=== PATIENT | female | born 1995 | race Caucasian/White ===

== ENCOUNTER → 2018-07-01 14:34 | Outpatient (CLI) | payer OTHER, SELFPAY | DX: Z23 Encounter for immunization (principal) | CPT/HCPCS: 90471; 90686 ==

== ENCOUNTER 2019-05-09 12:12 | Emergency (ER) | payer OTHER, SELFPAY ==
[2019-05-09 12:28] VITALS: BP 113/78; PULSE 83; RESP 18; TEMP 36.4; O2SAT 99; BMI 30.9
--- NOTE | 2019-05-09 13:30 | ED.DIZZY ---
HPI - Dizziness General Chief Complaint: Dizziness Stated Complaint: Lightheadedness, headache Time Seen by Provider: 05/09/19 13:29 Source: patient Mode of arrival: ambulatory Limitations: no limitations History of Present Illness HPI Narrative: Patient is a 23-year-old female who is 7 weeks presenting with dizziness lightheadedness. She says every time she stands up she is little dizzy lightheaded today she actually passed out. She has no abdominal pain nausea or vomiting. She has started her menstrual cycle she says she is bleeding normally for that. She has not had any fever or chills. Her symptoms are definitely worse every time she stands up or sits up. She is not dizzy she has no numbness tingling or weakness. No heart palpitations. No chest pain. MD complaint: dizziness Severity: mild Exacerbating factors: movement Related Data Home Medications Medication Instructions Recorded Confirmed ibuprofen [IBU] 800 mg PO PRN PRN 05/09/19 05/09/19 Allergies Allergy/AdvReac Type Severity Reaction Status Date / Time No Known Drug Allergies Allergy Verified 05/09/19 12:34 Review of Systems Review of Systems ROS Unobtainable: All systems reviewed & are unremarkable except as noted in HPI and below Constitutional Denies chills, Denies fever(s), Denies lethargy and Denies weakness Eyes Denies change in vision, Denies eye discharge, Denies irritation and Denies loss of vision ENT Ears, Nose, Mouth, and Throat: Denies change in voice, Denies neck pain and Denies sore throat Cardiovascular Denies chest pain, Reports diaphoresis, Reports syncope, Denies pedal edema, Denies irregular heart rhythm, Denies palpitations, Denies dyspnea and Denies dyspnea on exertion Respiratory Denies cough, Denies dyspnea, Denies dyspnea on exertion and Denies wheezing Gastrointestinal Gastrointestinal: Denies abdominal pain, Denies change in bowel habits, Denies diarrhea, Denies nausea and Denies vomiting Genitourinary Denies hematuria, Denies flank pain, Denies urinary incontinence and Denies urinary urgency Musculoskeletal Denies neck pain Integumentary/Breasts Denies pruritus, Denies erythema, Denies rash and Denies wounds Neurologic Reports syncope, Denies loss of vision and Denies weakness Endocrine Denies palpitations Allergic/Immunologic Denies wheezing [facility] Medical History Patient denies significant medical history (Acute) Social History Smoking Status: Never smoker Social History Smoking Status: Never smoker Exam Initial Vital Signs Initial Vital Signs: Vital Signs Temperature 97.5 F L 05/09/19 12:28 Pulse Rate 83 05/09/19 12:28 Respiratory Rate 18 05/09/19 12:28 Blood Pressure 113/78 05/09/19 12:28 Pulse Oximetry 99 05/09/19 12:28 GENERAL: Well-appearing, well-nourished and in no acute distress. HEENT: Head atraumatic,EOMI, pupils reactive, neck is supple no meningeal sign CARDIOVASCULAR: Regular rate and rhythm without murmurs, rubs or gallops. RESPIRATORY: Breath sounds equal bilaterally, no wheezes rales or rhonchi. ABDOMEN: Soft, nontender. Normoactive bowel sounds all 4 quadrants. No guarding or rebound. EXTREMITIES: Normal range of motion, no clubbing or edema. Neurovascularly intact NEUROLOGICAL: Alert and oriented x4.Normal gait and speech. Cranial nerves II through XII grossly intact. Narcotics Detective strength equal bilaterally SKIN: Warm, dry, no laceration, no petechiae, no rashes or lesions. Course Orders Ordered: ED Orders 05/09/19 13:25 Basic Metabolic Panel Stat Complete Blood Count AUTO DIFF Stat 05/09/19 13:46 EKG-12 Lead Stat Discontinued Medications Sodium Chloride (Normal Saline 0.9%) 1,000 mls @ 1,000 mls/hr IV BOLUS ONE Stop: 05/09/19 14:39 Last Infusion: 05/09/19 15:13 Dose: 0 mls/hr Admin: 05/09/19 13:48 Dose: 1,000 mls/hr Vital Signs - 8 hr 05/09/19 12:28 05/09/19 13:52 05/09/19 15:14 Temperature 97.5 F L Pulse Rate 83 60 Pulse Rate [Orthostatic Lying] 62 Pulse Rate [Orthostatic Sitting] 68 Pulse Rate [Orthostatic Standing] 87 Respiratory Rate 18 16 Blood Pressure 113/78 107/68 Blood Pressure [Orthostatic Lying] 98/53 L Blood Pressure [Orthostatic Sitting] 102/60 Blood Pressure [Orthostatic Standing] 100/63 Pulse Oximetry 99 100 MDM - Dizziness Lab Data Attestation: I reviewed the patient's lab results. Result diagrams: 05/09/19 13:25 05/09/19 13:25 Lab Results 05/09/19 05/09/19 Range/Units 13:25 13:25 WBC 8.0 (4.5-11.0) X10^3/uL RBC 4.89 (4.0-5.2) X10^6/uL Hgb 14.2 (12.0-16.0) g/dL Hct 42.5 (36-46) % MCV 86.9 (80-100) fL MCH 29.1 (26-34) PG MCHC 33.5 (30-36) % RDW 14.0 (11.6-14.8) % Plt Count 228 (150-400) X10^3/uL Neut % (Auto) 53.5 (50-75) % Lymph % (Auto) 35.0 (25-40) % [place] % (Auto) 8.4 (3-14) % Eos % (Auto) 2.5 (2-4) % Baso % (Auto) 0.6 (0-2) % Neut # (Auto) 4300 (2860-2570) /uL Lymph # (Auto) 2800 (1527-7809) /uL [place] # (Auto) 700 (0-900) /uL Eos # (Auto) 200 (0-450) /uL Baso # (Auto) 0 (0-100) /uL Sodium 142 (137-145) mmol/L Potassium 4.1 (3.4-5.1) mmol/L Chloride 105 (98-107) mmol/L Carbon Dioxide 26 (22-32) mmol/L BUN 13 (7-17) mg/dL Creatinine 0.70 (0.52-1.04) mg/dL Estimated GFR > 60.0 (>60) mL/min BUN/Creatinine Ratio 18.6 (6-22) Glucose 85 (70-100) mg/dL Calcium 9.2 (8.4-10.2) mg/dL Point of Care Testing Test Results Negative Urine Dip Bedside Urine Glucose Negative Bedside Urine Bilirubin - Negative Bedside Urine Ketone - Negative Urine Specific [place] 1.015 Bedside Urine Occult Blood +/- Bedside Urine pH 7.0 Bedside Urine Protein - Negative Bedside Urine Urobilinogen - Negative Bedside Urine Nitrite - Negative Bedside Urine Leukocytes - Negative Esterase ECG Data Attestation: I personally reviewed and interpreted this ECG as follows: Prior ECG tracings: not available for review Interpretation: Normal sinus rhythm rate 63 P are interval [address] changes no T-wave inversions no prior to compare MDM Narrative Medical decision making narrative: The patient overall is feeling better after IV fluids. She is not anemic no sign of dehydration she has been drinking fluids. I discussed with her getting up slowly. She was able to ambulate to the restroom without any difficulty in the ED. Her urine does not show any sign of infection. All of this is overall reassuring. Patient feels ready and able to go home. Discharge Plan Departure Patient Disposition: Home Clinical Impression: Near syncope Discharge Date/Time: 05/09/19 15:14 Interventions: ED Discharge Assessment Last Done: 05/09/19 15:14 Instructions: DI for Syncope in Children (Fainting) Activity Restrictions/Additional Instructions: *You have been diagnosed with fainting *What to do: At this time her blood work and urine sample are reassuring. No sign of anemia or dehydration. Increase fluid intake. Get up slowly. *Continue to take medications as directed *Follow up with your primary care provider in 2-3 days *Return to ER if you should have recurrent episode of passing out, heart palpitations, or any new, worsening or concerning symptoms Prescriptions: No Action ibuprofen [IBU] 800 mg tablet 800 mg PO PRN PRN (Reason: Pain (Scale Score 4-6)) RF: 0
[2019-05-09 13:46] LABS: Add Manual Diff / Slide Review NO; Basophils Absolute Auto 0 /uL (0-100); Basophils Percent Auto 0.6 % (0-2); Eosinophils Absolute Auto 200 /uL (0-450); Eosinophils Percent Auto 2.5 % (2-4); Hematocrit 42.5 % (36-46); Hemoglobin 14.2 g/dL (12.0-16.0); Lymphocytes Absolute Auto 2800 /uL (1100-4500); Mean Corpuscular HGB Conc 33.5 % (30-36); Mean Corpuscular Hemoglobin 29.1 PG (26-34); Mean Corpuscular Volume 86.9 fL (80-100); Monocytes Absolute Auto 700 /uL (0-900); Monocytes Percent Auto 8.4 % (3-14); Neutrophils Absolute Auto 4300 /uL (1500-7000); Neutrophils Percent Auto 53.5 % (50-75); Platelet Count 228 X10^3/uL (150-400); Red Blood Cell Count 4.89 X10^6/uL (4.0-5.2)
[2019-05-09] MEDS: SODIUM CHLORIDE 0.9% 1,000 ML 1000 ML IV (13:48)
[2019-05-09 13:50] LABS: BUN Creatinine Ratio 18.6 (6-22); Blood Urea Nitrogen 13 mg/dL (7-17); Calcium 9.2 mg/dL (8.4-10.2); Carbon Dioxide 26 mmol/L (22-32); Chloride 105 mmol/L (98-107); Estimated Glomerular Filt Rate > 60.0 mL/min (>60); Glucose 85 mg/dL (70-100); HEMOLYSIS 18 (0-50); Potassium 4.1 mmol/L (3.4-5.1); Sodium 142 mmol/L (137-145)
[2019-05-09 13:52] VITALS: BP 100/63; BP 102/60; BP 98/53; PULSE 62; PULSE 68; PULSE 87
[2019-05-09 15:14] VITALS: BP 107/68; PULSE 60; RESP 16; O2SAT 100
== END 2019-05-09 15:14 | disposition home or self-care (01) ==
PROVIDERS: Emergency Provider Emergency Medicine
DX: R55 Syncope and collapse (principal)
CPT/HCPCS: 80048; 81003; 81025; 85025; 93005; 96360; 99283; 99284

== ENCOUNTER 2019-07-03 06:43 | Emergency (ER) | payer OTHER, SELFPAY ==
[2019-07-03] VITALS (8 sets, daily range): BP systolic 100–111; BP diastolic 42–60; PULSE 104–128; RESP 15–18; TEMP 37.4–38.6; O2SAT 97–100; BMI 30.9
--- NOTE | 2019-07-03 07:06 | ED.GENADULT ---
HPI - General Adult General Chief complaint: Urogenital-Female Stated complaint: lower back pain,painful urination,body aches Time Seen by Provider: 07/03/19 06:58 Source: patient Mode of arrival: Ambulatory Limitations: no limitations History of Present Illness HPI narrative: 23 y/o healthy with lower back pain and painful urination over the past week. nausea today. no vomiting, loose stools today no constipation, has IUD so no regular menses. No fevers. no headache, Related Data Home Medications Medication Instructions Recorded Confirmed ibuprofen [IBU] 800 mg PO PRN PRN 05/09/19 05/09/19 Previous Rx's Medication Instructions Recorded ciprofloxacin HCl 500 mg PO BID 7 Days #14 tab 07/03/19 ondansetron 4 mg PO Q6H PRN #14 tab 07/03/19 Allergies Allergy/AdvReac Type Severity Reaction Status Date / Time No Known Drug Allergies Allergy Verified 05/09/19 12:34 Review of Systems Constitutional Constitutional: Denies fever(s) Cardiovascular Cardiovascular: Denies chest pain, Denies palpitations and Denies dyspnea Respiratory Respiratory: Denies cough and Denies dyspnea Gastrointestinal Gastrointestinal: Reports abdominal pain, Denies change in stool character, Reports nausea and Denies vomiting Genitourinary Genitourinary: Reports dysuria Musculoskeletal Musculoskeletal: Reports back pain Integumentary/Breasts Skin/Breast: Reports lesions and Reports rash Neurologic Neurologic: Denies behavioral changes Psychiatric Psychiatric: Denies behavioral changes Endocrine Endocrine: Denies palpitations Hematologic/Lymphatic Hematologic/Lymphatic: Denies easy bleeding and Denies easy bruising PFSH Medical History Patient denies significant medical history (Acute) Social History Smoking Status: Never smoker Exam Initial Vital Signs Initial Vital Signs: Vital Signs Temperature 99.4 F 07/03/19 06:50 Pulse Rate 128 H 07/03/19 06:50 Respiratory Rate 18 07/03/19 06:50 Blood Pressure 111/60 07/03/19 06:50 Pulse Oximetry 100 07/03/19 06:50 Const General: cooperative, healthy appearing, comfortable, well developed and well groomed Orientation: alert, awake and oriented x3 Resp Effort & Inspection: normal respiratory effort Auscultation: clear to auscultation bilaterally Cardio Rate: tachycardic Rhythm: regular rhythm GI Inspection: non-distended Palpation: soft, No firm and No tender Back/Spine/Pelvis Back: No CVA tenderness Skin Lesions: no lesions Rashes: no rashes Neuro General: alert, awake and oriented x3 Cognition: normal cognition Speech: speech normal Gait: normal gait Extrem General: normal to inspection and capillary refill normal Psych Appearance: grossly normal and well kempt Course Orders Ordered: ED Orders 07/03/19 06:55 Test Urine Stat Urine Culture Stat Urine Microscopic Stat 07/03/19 07:10 Complete Blood Count AUTO DIFF Stat Comprehensive Metabolic Panel Stat Lactate (Lactic Acid) Stat Lipase Stat Procalcitonin Stat Discontinued Medications Acetaminophen (Tylenol) 650 mg PO NOW ONE Stop: 07/03/19 08:04 Last Admin: 07/03/19 08:13 Dose: 650 mg Documented by: DO Ciprofloxacin (Cipro) 500 mg PO NOW ONE Stop: 07/03/19 08:09 Last Admin: 07/03/19 08:14 Dose: 500 mg Documented by: DO Sodium Chloride (Normal Saline 0.9%) 1,000 mls @ 1,000 mls/hr IV BOLUS ONE Stop: 07/03/19 07:50 Last Admin: 07/03/19 07:34 Dose: 1,000 mls/hr Documented by: DO Sodium Chloride (Normal Saline 0.9%) 1,000 mls @ 1,000 mls/hr IV BOLUS ONE Stop: 07/03/19 08:01 Last Admin: 07/03/19 08:05 Dose: Not Given Documented by: DO Ketorolac Tromethamine (Toradol) 30 mg IV NOW ONE Stop: 07/03/19 06:52 Last Admin: 07/03/19 07:26 Dose: Not Given Documented by: DENYS Ketorolac Tromethamine (Toradol) 30 mg IV NOW ONE Stop: 07/03/19 07:26 Last Admin: 07/03/19 07:34 Dose: 30 mg Documented by: DO Vital Signs Vital signs: Vital Signs - 8 hr 07/03/19 06:50 07/03/19 07:15 07/03/19 08:06 Temperature 99.4 F 101.4 F H Pulse Rate 128 H 118 H 112 H Respiratory Rate 18 17 16 Blood Pressure 111/60 Blood Pressure [Left Arm] 100/46 L 102/42 L Pulse Oximetry 100 99 98 07/03/19 08:10 07/03/19 08:13 07/03/19 08:36 Temperature 101.4 F H Pulse Rate 108 H 113 H Respiratory Rate 16 15 Blood Pressure Blood Pressure [Left Arm] 102/46 L 101/54 L Pulse Oximetry 97 99 Medical Decision Making Lab Data Lab results reviewed: Yes I reviewed the patient's lab results. Result diagrams: 07/03/19 07:10 07/03/19 07:10 Labs: Lab Results 07/03/19 07/03/19 07/03/19 Range/Units 06:55 06:55 07:10 WBC 13.4 H (4.5-11.0) X10^3/uL RBC 4.35 (4.0-5.2) X10^6/uL Hgb 13.0 (12.0-16.0) g/dL Hct 38.7 (36-46) % MCV 89.1 (80-100) fL MCH 29.8 (26-34) PG MCHC 33.5 (30-36) % RDW 13.2 (11.6-14.8) % Plt Count 234 (150-400) X10^3/uL Neut % (Auto) 82.9 H (50-75) % Lymph % (Auto) 8.0 L (25-40) % [place] % (Auto) 8.4 (3-14) % Eos % (Auto) 0.5 L (2-4) % Baso % (Auto) 0.2 (0-2) % Neut # (Auto) 49626 H (8677-7131) /uL Lymph # (Auto) 1100 (6677-0121) /uL [place] # (Auto) 1100 H (0-900) /uL Eos # (Auto) 100 (0-450) /uL Baso # (Auto) 0 (0-100) /uL Sodium (137-145) mmol/L Potassium (3.4-5.1) mmol/L Chloride (98-107) mmol/L Carbon Dioxide (22-32) mmol/L BUN (7-17) mg/dL Creatinine (0.52-1.04) mg/dL Estimated GFR (>60) mL/min BUN/Creatinine Ratio (6-22) Glucose (70-100) mg/dL Lactate (0.7-2.1) mmol/L Calcium (8.4-10.2) mg/dL Total Bilirubin (0.2-1.3) mg/dL AST (14-36) IU/L ALT (9-52) IU/L Alkaline Phosphatase (38-126) U/L Total Protein (6.3-8.2) g/dL Albumin (3.5-5.0) g/dL Globulin (1.7-4.1) g/dL Albumin/Globulin Ratio (1.0-2.8) Lipase (23-300) U/L Procalcitonin (<0.5) ng/mL Urine RBC 5-10/hpf H (0-5/HPF) Urine WBC >100/hpf H (0-5/HPF) Urine Bacteria Many (>30) H (None) Ur Culture Indicated? Specimen cultured Urine Test Negative (Negative) 07/03/19 07/03/19 07/03/19 Range/Units 07:10 07:10 07:10 WBC (4.5-11.0) X10^3/uL RBC (4.0-5.2) X10^6/uL Hgb (12.0-16.0) g/dL Hct (36-46) % MCV (80-100) fL MCH (26-34) PG MCHC (30-36) % RDW (11.6-14.8) % Plt Count (150-400) X10^3/uL Neut % (Auto) (50-75) % Lymph % (Auto) (25-40) % [place] % (Auto) (3-14) % Eos % (Auto) (2-4) % Baso % (Auto) (0-2) % Neut # (Auto) (3843-4224) /uL Lymph # (Auto) (0945-0160) /uL [place] # (Auto) (0-900) /uL Eos # (Auto) (0-450) /uL Baso # (Auto) (0-100) /uL Sodium 139 (137-145) mmol/L Potassium 3.9 (3.4-5.1) mmol/L Chloride 105 (98-107) mmol/L Carbon Dioxide 22 (22-32) mmol/L BUN 11 (7-17) mg/dL Creatinine 0.70 (0.52-1.04) mg/dL Estimated GFR > 60.0 (>60) mL/min BUN/Creatinine Ratio 15.7 (6-22) Glucose 163 H (70-100) mg/dL Lactate (0.7-2.1) mmol/L Calcium 9.2 (8.4-10.2) mg/dL Total Bilirubin 0.6 (0.2-1.3) mg/dL AST 45 H (14-36) IU/L ALT 26 (9-52) IU/L Alkaline Phosphatase 91 (38-126) U/L Total Protein 7.6 (6.3-8.2) g/dL Albumin 4.3 (3.5-5.0) g/dL Globulin 3.3 (1.7-4.1) g/dL Albumin/Globulin Ratio 1.3 (1.0-2.8) Lipase 32 (23-300) U/L Procalcitonin < 0.05 (<0.5) ng/mL Urine RBC (0-5/HPF) Urine WBC (0-5/HPF) Urine Bacteria (None) Ur Culture Indicated? Urine Test (Negative) 07/03/19 Range/Units 07:10 WBC (4.5-11.0) X10^3/uL RBC (4.0-5.2) X10^6/uL Hgb (12.0-16.0) g/dL Hct (36-46) % MCV (80-100) fL MCH (26-34) PG MCHC (30-36) % RDW (11.6-14.8) % Plt Count (150-400) X10^3/uL Neut % (Auto) (50-75) % Lymph % (Auto) (25-40) % [place] % (Auto) (3-14) % Eos % (Auto) (2-4) % Baso % (Auto) (0-2) % Neut # (Auto) (0937-2280) /uL Lymph # (Auto) (8335-5612) /uL [place] # (Auto) (0-900) /uL Eos # (Auto) (0-450) /uL Baso # (Auto) (0-100) /uL Sodium (137-145) mmol/L Potassium (3.4-5.1) mmol/L Chloride (98-107) mmol/L Carbon Dioxide (22-32) mmol/L BUN (7-17) mg/dL Creatinine (0.52-1.04) mg/dL Estimated GFR (>60) mL/min BUN/Creatinine Ratio (6-22) Glucose (70-100) mg/dL Lactate 2.0 (0.7-2.1) mmol/L Calcium (8.4-10.2) mg/dL Total Bilirubin (0.2-1.3) mg/dL AST (14-36) IU/L ALT (9-52) IU/L Alkaline Phosphatase (38-126) U/L Total Protein (6.3-8.2) g/dL Albumin (3.5-5.0) g/dL Globulin (1.7-4.1) g/dL Albumin/Globulin Ratio (1.0-2.8) Lipase (23-300) U/L Procalcitonin (<0.5) ng/mL Urine RBC (0-5/HPF) Urine WBC (0-5/HPF) Urine Bacteria (None) Ur Culture Indicated? Urine Test (Negative) Urine Dip Bedside Urine Glucose Negative Bedside Urine Bilirubin - Negative Bedside Urine Ketone ++ 40 Urine Specific [place] 1.015 Bedside Urine Occult Blood ++ Bedside Urine pH 6.0 Bedside Urine Protein ++ 100 Bedside Urine Urobilinogen - Negative Bedside Urine Nitrite - Negative Bedside Urine Leukocytes +++ 500 Esterase Point of care testing: Urine Dip Bedside Urine Glucose Negative Bedside Urine Bilirubin - Negative Bedside Urine Ketone ++ 40 Urine Specific [place] 1.015 Bedside Urine Occult Blood ++ Bedside Urine pH 6.0 Bedside Urine Protein ++ 100 Bedside Urine Urobilinogen - Negative Bedside Urine Nitrite - Negative Bedside Urine Leukocytes +++ 500 Esterase MDM Narrative Medical decision making narrative: Patient looks well, has a elevated white count, urinalysis is consistent with UTI however lactate and procalcitonin reassuring. She does have some lower back pain. Given her fever and tachycardia will treat her for pyelonephritis however not 100% convinced that is what is going on. She did tolerate the oral antibiotic here in the ER. She was given return precautions and follow-up instructions. She expressed understanding and agreement with plan. Discharge Plan Departure Patient Disposition: Home Clinical Impression: Urinary tract infection Qualifiers: Urinary tract infection type: acute cystitis Hematuria presence: with hematuria Qualified Code(s): N30.01 - Acute cystitis with hematuria Instructions: DI for Urinary Tract Infection (UTI) Activity Restrictions/Additional Instructions: Take all the medications as directed. Increase your fluid intake. Return to the emergency department for any new or worsening symptoms Prescriptions: New ondansetron 4 mg tablet,disintegrating 4 mg PO Q6H PRN (Reason: nausea and vomiting) Qty: 14 RF: 0 ciprofloxacin HCl 500 mg tablet 500 mg PO BID 7 Days Qty: 14 RF: 0 No Action ibuprofen [IBU] 800 mg tablet 800 mg PO PRN PRN (Reason: Pain (Scale Score 4-6)) RF: 0
[2019-07-03 07:30] LABS: Lipase 32 U/L (23-300)
[2019-07-03] MEDS: SODIUM CHLORIDE 0.9% 1,000 ML 1000 ML IV (07:34)
[2019-07-03] MEDS: KETOROLAC 60 MG/2 ML VIAL 30 MG IV (07:34)
[2019-07-03 07:35] LABS: Add Manual Diff / Slide Review NO; Basophils Absolute Auto 0 /uL (0-100); Basophils Percent Auto 0.2 % (0-2); Eosinophils Absolute Auto 100 /uL (0-450); Eosinophils Percent Auto 0.5 % (2-4); Hematocrit 38.7 % (36-46); Lymphocytes Absolute Auto 1100 /uL (1100-4500); Mean Corpuscular HGB Conc 33.5 % (30-36); Mean Corpuscular Hemoglobin 29.8 PG (26-34); Mean Corpuscular Volume 89.1 fL (80-100); Monocytes Absolute Auto 1100 /uL (0-900); Monocytes Percent Auto 8.4 % (3-14); Neutrophils Absolute Auto 11100 /uL (1500-7000); Neutrophils Percent Auto 82.9 % (50-75); Platelet Count 234 X10^3/uL (150-400); Red Blood Cell Count 4.35 X10^6/uL (4.0-5.2); Red Cell Distribution Width 13.2 % (11.6-14.8); White Blood Cell Count 13.4 X10^3/uL (4.5-11.0)
[2019-07-03 07:51] LABS: Bacteria Urine Many (>30); Culture Indicated Urine Specimen Cultured; Pregnancy Test Urine Negative (Negative); RBC Urine 5-10/HPF (0-5/HPF); WBC Urine >100/HPF (0-5/HPF)
[2019-07-03 07:59] LABS: Procalcitonin < 0.05 ng/mL (<0.5)
[2019-07-03] MEDS: ACETAMINOPHEN 325 MG TABLET 650 MG PO (08:13)
[2019-07-03] MEDS: CIPROFLOXACIN 500 MG TABLET PO (08:14)
[2019-07-03 08:40] LABS: Alanine Aminotransferase 26 IU/L (9-52); Albumin 4.3 g/dL (3.5-5.0); Albumin Globulin Ratio 1.3 (1.0-2.8); Alkaline Phosphatase 91 U/L (38-126); Aspartate Aminotransferase 45 IU/L (14-36); BUN Creatinine Ratio 15.7 (6-22); Bilirubin Total 0.6 mg/dL (0.2-1.3); Blood Urea Nitrogen 11 mg/dL (7-17); Calcium 9.2 mg/dL (8.4-10.2); Carbon Dioxide 22 mmol/L (22-32); Chloride 105 mmol/L (98-107); Estimated Glomerular Filt Rate > 60.0 mL/min (>60); Globulin 3.3 g/dL (1.7-4.1); Glucose 163 mg/dL (70-100); HEMOLYSIS < 15 (0-50); Potassium 3.9 mmol/L (3.4-5.1); Sodium 139 mmol/L (137-145); Total Protein 7.6 g/dL (6.3-8.2)
== END 2019-07-03 09:08 | disposition home or self-care (01) ==
PROVIDERS: Emergency Medicine; Emergency Provider Emergency Medicine
DX: N30.01 Acute cystitis with hematuria (principal); D72.829 Elevated white blood cell count, unspecified
CPT/HCPCS: 36415; 80053; 81003; 81015; 81025; 83605; 83690; 84145; 85025; 87077; 87086; 87186; 96361; 96374; 99283; 99284; J1885

== ENCOUNTER 2019-12-30 08:08 | Emergency (ER) | payer OTHER, SELFPAY ==
[2019-12-30 08:10] VITALS: BP 134/63; PULSE 126; RESP 18; TEMP 36.9; O2SAT 96; BMI 35.4
--- NOTE | 2019-12-30 08:28 | PC.NURSE ---
pt had travel in the cruise to [place] a month ago.
--- NOTE | 2019-12-30 08:30 | ED.NAVMDI ---
HPI - Nausea/Vomiting/Diarrhea General Chief complaint: Nausea/Vomiting/Diarrhea Stated complaint: fever,diarrhea,vomiting Time Seen by Provider: 12/30/19 08:14 Source: patient Mode of arrival: Ambulatory Limitations: no limitations History of Present Illness HPI Narrative: 24-year-old female here for evaluation of 3 days of multiple episodes of nausea vomiting and diarrhea. Patient states that all her symptoms started 3 days ago with a fever. She has been taking ibuprofen. No cough for congestion or sore throat or chest pain. Proximal 24 hours after the fever started having diarrhea and vomiting. Her last urination was greater than 24 hours ago. Has not tried anything for symptoms prior to arrival. Has generalized abdominal pain associated with the diarrhea. Had travel outside of the country 1 month ago. Has had her gallbladder removed and her tubes tied. No blood in the stool or vomit. Related Data Home Medications Medication Instructions Recorded Confirmed ibuprofen [IBU] 800 mg PO PRN PRN 05/09/19 05/09/19 Previous Rx's Medication Instructions Recorded ondansetron 4 mg PO Q6H PRN #14 tab 07/03/19 ondansetron 4 mg PO Q6H PRN #14 tab 12/30/19 Allergies Allergy/AdvReac Type Severity Reaction Status Date / Time No Known Drug Allergies Allergy Verified 12/30/19 08:18 Review of Systems Constitutional Constitutional: Reports fever(s) ENT Ears, Nose, Mouth, and Throat: Denies vertigo, Denies sinus pressure and Denies sore throat Cardiovascular Cardiovascular: Denies chest pain, Denies palpitations and Denies dyspnea Respiratory Respiratory: Denies cough and Denies dyspnea Gastrointestinal Gastrointestinal: Reports abdominal pain, Reports cramping, Reports diarrhea, Reports nausea and Reports vomiting Genitourinary Genitourinary: Denies dysuria Musculoskeletal Musculoskeletal: Denies myalgias and Denies arthralgias Integumentary/Breasts Skin/Breast: Denies lesions and Denies rash Neurologic Neurologic: Denies behavioral changes and Denies vertigo Psychiatric Psychiatric: Denies behavioral changes Endocrine Endocrine: Denies palpitations Hematologic/Lymphatic Hematologic/Lymphatic: Denies easy bleeding and Denies easy bruising Patient History Medical History Patient denies significant medical history (Acute) Surgical History History of cholecystectomy (Acute) History of tubal ligation (Acute) Social History Smoking Status: Never smoker Smoking Status: Never smoker alcohol intake frequency: holidays/special occasions only Alcohol type: wine Substance Use Type: does not use Exam Initial Vital Signs Initial Vital Signs: Vital Signs Temperature 98.5 F 12/30/19 08:10 Pulse Rate 126 H 12/30/19 08:10 Respiratory Rate 18 12/30/19 08:10 Blood Pressure 134/63 12/30/19 08:10 Pulse Oximetry 96 12/30/19 08:10 Const General: cooperative, comfortable, well developed and well groomed Limitations: mental status not altered HENMT Head: normal to inspection Resp Effort & Inspection: normal respiratory effort Auscultation: clear to auscultation bilaterally Cardio Rate: tachycardic Rhythm: regular rhythm Pulses: radial pulses present GI Inspection: non-distended Palpation: soft, No firm and No tender Skin Lesions: no lesions Rashes: no rashes Neuro General: alert, awake and oriented x3 Cognition: normal cognition Speech: speech normal Gait: normal gait Extrem General: normal to inspection and capillary refill normal Psych Appearance: grossly normal and well kempt Scores GCS Gio coma scale eye opening: Spontaneous [place] coma scale verbal response: Orientated [place] coma scale motor response: Obey commands [place] coma scale total score: 15 Course Orders Ordered: ED Orders 12/30/19 08:22 EKG-12 Lead Stat 12/30/19 08:25 Complete Blood Count AUTO DIFF Stat Comprehensive Metabolic Panel Stat Lipase Stat Discontinued Medications Sodium Chloride (Normal Saline 0.9%) 1,000 mls @ 1,000 mls/hr IV BOLUS ONE Stop: 12/30/19 09:21 Last Infusion: 12/30/19 09:34 Dose: 0 mls/hr Documented by: Admin: 12/30/19 08:34 Dose: 1,000 mls/hr Documented by: MEISENB Sodium Chloride (Normal Saline 0.9%) 1,000 mls @ 1,000 mls/hr IV BOLUS ONE Stop: 12/30/19 10:20 Last Infusion: 12/30/19 10:54 Dose: 0 mls/hr Documented by: Admin: 12/30/19 09:38 Dose: 1,000 mls/hr Documented by: HERMELINDA Ketorolac Tromethamine (Toradol) 30 mg IV NOW ONE Stop: 12/30/19 09:22 Last Admin: 12/30/19 09:39 Dose: 30 mg Documented by: HERMELINDA Ondansetron HCl (Zofran) 4 mg IV NOW ONE Stop: 12/30/19 08:30 Last Admin: 12/30/19 08:34 Dose: 4 mg Documented by: CASEY Vital Signs Vital signs: Vital Signs - 8 hr 12/30/19 08:10 12/30/19 10:02 12/30/19 11:06 Temperature 98.5 F Pulse Rate 126 H 104 H 98 H Respiratory Rate 18 16 16 Blood Pressure 134/63 Blood Pressure [Right Arm] 118/58 L 133/56 L Pulse Oximetry 96 99 98 MDM - Nausea/Vomiting/Diarrhea Lab Data Attestation: I reviewed the patient's lab results. Result diagrams: 12/30/19 08:25 12/30/19 08:25 Labs: Lab Results 12/30/19 12/30/19 Range/Units 08:25 08:25 WBC 8.8 (4.5-11.0) X10^3/uL RBC 5.31 H (4.0-5.2) X10^6/uL Hgb 16.2 H (12.0-16.0) g/dL Hct 47.1 H (36-46) % MCV 88.6 (80-100) fL MCH 30.6 (26-34) PG MCHC 34.5 (30-36) % RDW 12.6 (11.6-14.8) % Plt Count 223 (150-400) X10^3/uL Neut % (Auto) 71.7 (50-75) % Lymph % (Auto) 17.1 L (25-40) % Sampson % (Auto) 10.1 (3-14) % Eos % (Auto) 0.7 L (2-4) % Baso % (Auto) 0.4 (0-2) % Neut # (Auto) 6300 (0823-1094) /uL Lymph # (Auto) 1500 (4294-5862) /uL Sampson # (Auto) 900 (0-900) /uL Eos # (Auto) 100 (0-450) /uL Baso # (Auto) 0 (0-100) /uL Sodium 138 (137-145) mmol/L Potassium 4.0 (3.4-5.1) mmol/L Chloride 104 (98-107) mmol/L Carbon Dioxide 24 (22-32) mmol/L BUN 13 (7-17) mg/dL Creatinine 0.78 (0.52-1.04) mg/dL Estimated GFR > 60.0 (>60) mL/min BUN/Creatinine Ratio 16.7 (6-22) Glucose 109 H (70-100) mg/dL Calcium 9.5 (8.4-10.2) mg/dL Total Bilirubin 0.8 (0.2-1.3) mg/dL AST 35 (14-36) IU/L ALT 32 (<35) IU/L Alkaline Phosphatase 110 (38-126) U/L Total Protein 8.6 H (6.3-8.2) g/dL Albumin 4.7 (3.5-5.0) g/dL Globulin 3.9 (1.7-4.1) g/dL Albumin/Globulin Ratio 1.2 (1.0-2.8) Lipase 48 (23-300) U/L ECG Data Attestation: I personally reviewed and interpreted this ECG as follows: Prior ECG tracings: not available for review Interpretation: Sinus tachycardia Ventricular rate of 108 Normal axis Normal QRS Normal QTC No ST T wave changes MDM Narrative Medical decision making narrative: Feel somewhat better after the fluids and the nausea medication. She states that she does feel somewhat nauseous however was able to tolerate oral intake. Was able to urinate a small amount. Feel that we could hold on radiologic studies. No indication for antibiotics. Will send home with nausea medication. Patient has benign abdominal exam. She was given return precautions and follow-up instructions. She expressed understanding and agreement. Discharge Plan Departure Patient Disposition: Home Clinical Impression: Nausea, Vomiting, and Diarrhea Instructions: Diarrhea, DI for Dehydration -- Adult, DI for Nausea -- Adult, DI for Vomiting -- Adult Activity Restrictions/Additional Instructions: Be sure to increase your fluid intake by taking small amounts of fluid over longer periods of time. Use the nausea medication as needed. Contact your primary provider for follow-up. Return to the emergency department for any new or worsening symptoms. Your prescriptions were electronically transmitted to [facility]. Prescriptions: New ondansetron 4 mg tablet,disintegrating 4 mg PO Q6H PRN (Reason: nausea and vomiting) Qty: 14 RF: 0 No Action ibuprofen [IBU] 800 mg tablet 800 mg PO PRN PRN (Reason: Pain (Scale Score 4-6)) RF: 0 ondansetron 4 mg tablet,disintegrating 4 mg PO Q6H PRN (Reason: nausea and vomiting) Qty: 14 RF: 0 Referrals: Miscellaneous,Doctor, MD [Primary Care Provider] -
[2019-12-30] MEDS: SODIUM CHLORIDE 0.9% 1,000 ML 1000 ML IV ×2 (08:34→09:38)
[2019-12-30] MEDS: ONDANSETRON 4 MG/2 ML INJ IV (08:34)
[2019-12-30 08:37] LABS: Add Manual Diff / Slide Review NO; Basophils Absolute Auto 0 /uL (0-100); Basophils Percent Auto 0.4 % (0-2); Eosinophils Absolute Auto 100 /uL (0-450); Eosinophils Percent Auto 0.7 % (2-4); Hematocrit 47.1 % (36-46); Hemoglobin 16.2 g/dL (12.0-16.0); Lymphocytes Absolute Auto 1500 /uL (1100-4500); Lymphocytes Percent Auto 17.1 % (25-40); Mean Corpuscular HGB Conc 34.5 % (30-36); Mean Corpuscular Hemoglobin 30.6 PG (26-34); Mean Corpuscular Volume 88.6 fL (80-100); Monocytes Absolute Auto 900 /uL (0-900); Monocytes Percent Auto 10.1 % (3-14); Neutrophils Absolute Auto 6300 /uL (1500-7000); Neutrophils Percent Auto 71.7 % (50-75); Platelet Count 223 X10^3/uL (150-400); Red Blood Cell Count 5.31 X10^6/uL (4.0-5.2); Red Cell Distribution Width 12.6 % (11.6-14.8); White Blood Cell Count 8.8 X10^3/uL (4.5-11.0)
[2019-12-30 08:43] LABS: Alanine Aminotransferase 32 IU/L (<35); Albumin 4.7 g/dL (3.5-5.0); Albumin Globulin Ratio 1.2 (1.0-2.8); Alkaline Phosphatase 110 U/L (38-126); Aspartate Aminotransferase 35 IU/L (14-36); BUN Creatinine Ratio 16.7 (6-22); Bilirubin Total 0.8 mg/dL (0.2-1.3); Blood Urea Nitrogen 13 mg/dL (7-17); Calcium 9.5 mg/dL (8.4-10.2); Carbon Dioxide 24 mmol/L (22-32); Chloride 104 mmol/L (98-107); Estimated Glomerular Filt Rate > 60.0 mL/min (>60); Globulin 3.9 g/dL (1.7-4.1); Glucose 109 mg/dL (70-100); HEMOLYSIS < 15 (0-50); Lipase 48 U/L (23-300); Sodium 138 mmol/L (137-145); Total Protein 8.6 g/dL (6.3-8.2)
[2019-12-30] MEDS: KETOROLAC 60 MG/2 ML VIAL 30 MG IV (09:39)
[2019-12-30 10:02] VITALS: BP 118/58; PULSE 104; RESP 16; O2SAT 99
--- NOTE | 2019-12-30 10:56 | PC.NURSE ---
to void, but will try to void, ambulate to bathroom with steady gait. nad.
[2019-12-30 11:06] VITALS: BP 133/56; PULSE 98; RESP 16; O2SAT 98
== END 2019-12-30 11:39 | disposition home or self-care (01) ==
PROVIDERS: Emergency Provider Emergency Medicine
DX: R50.9 Fever, unspecified (principal); R19.7 Diarrhea, unspecified; R10.9 Unspecified abdominal pain
CPT/HCPCS: 36415; 80053; 83690; 85025; 93005; 96361; 96374; 96375; 99284; J1885; J2405

== ENCOUNTER 2020-05-17 20:53 | Emergency (ER) | payer OTHER, SELFPAY ==
[2020-05-17 21:02] VITALS: BP 116/77; PULSE 80; RESP 18; TEMP 36.3; O2SAT 99; BMI 35.4
[2020-05-17 21:27] LABS: Add Manual Diff / Slide Review NO; Basophils Absolute Auto 0 /uL (0-100); Basophils Percent Auto 0.5 % (0-2); Eosinophils Absolute Auto 300 /uL (0-450); Eosinophils Percent Auto 3.1 % (2-4); Hematocrit 38.1 % (36-46); Hemoglobin 13.2 g/dL (12.0-16.0); Lymphocytes Absolute Auto 3100 /uL (1100-4500); Lymphocytes Percent Auto 35.8 % (25-40); Mean Corpuscular HGB Conc 34.7 % (30-36); Mean Corpuscular Hemoglobin 29.9 PG (26-34); Mean Corpuscular Volume 86.1 fL (80-100); Monocytes Absolute Auto 1100 /uL (0-900); Monocytes Percent Auto 12.7 % (3-14); Neutrophils Absolute Auto 4100 /uL (1500-7000); Neutrophils Percent Auto 47.9 % (50-75); Platelet Count 204 X10^3/uL (150-400); Red Blood Cell Count 4.43 X10^6/uL (4.0-5.2); Red Cell Distribution Width 12.8 % (11.6-14.8); White Blood Cell Count 8.6 X10^3/uL (4.5-11.0)
[2020-05-17 21:35] LABS: INR 1.1 (0.9-1.3); Prothrombin Time 13.2 SECONDS (10.1-12.7)
[2020-05-17 21:38] LABS: PTT Partial Thromboplastin Tim 31 SECONDS (26.4-36.2)
[2020-05-17 21:39] LABS: Alanine Aminotransferase 33 IU/L (<35); Albumin 4.2 g/dL (3.5-5.0); Albumin Globulin Ratio 1.3 (1.0-2.8); Alkaline Phosphatase 94 U/L (38-126); Aspartate Aminotransferase 31 IU/L (14-36); BUN Creatinine Ratio 15.1 (6-22); Bilirubin Total 0.6 mg/dL (0.2-1.3); Blood Urea Nitrogen 11 mg/dL (7-17); Calcium 9.5 mg/dL (8.4-10.2); Carbon Dioxide 24 mmol/L (22-32); Chloride 105 mmol/L (98-107); Estimated Glomerular Filt Rate > 60.0 mL/min (>60); Globulin 3.3 g/dL (1.7-4.1); Glucose 102 mg/dL (70-100); HEMOLYSIS < 15 (0-50); Lipase 59 U/L (23-300); Potassium 3.5 mmol/L (3.4-5.1); Sodium 139 mmol/L (137-145); Total Protein 7.5 g/dL (6.3-8.2)
--- NOTE | 2020-05-17 21:49 | ED_ITS ---
HPI - GI Bleed General Chief complaint: GI Bleed Stated complaint: stomach pain, rectal bleed Time Seen by Provider: 05/17/20 21:00 Source: patient Mode of arrival: Ambulatory Limitations: no limitations History of Present Illness HPI Narrative: Female nonsmoker presents with a significant other and a chief complaint abdominal cramping and bloating with frequent episodes of diarrhea which have been bloody and foul-smelling the past few days. She has had fever as high as 102. She is not dizzy nor weak or lightheaded. She has had nausea but no vomiting. She denies any recent antibiotics, international travel or exposure to bad food. She denies any exposure to ill persons. She is otherwise well and free of complaint MD complaint: blood streaked stool Onset (ago): day(s) Pain Consistency: intermittent Severity: moderate Relieving factors: none Exacerbating factors: bowel movement Treatments Prior to Arrival: none Related Data Home Medications Medication Instructions Recorded Confirmed ibuprofen [IBU] 800 mg PO PRN PRN 05/09/19 05/09/19 Previous Rx's Medication Instructions Recorded ondansetron 4 mg PO Q6H PRN #14 tab 07/03/19 ondansetron 4 mg PO Q6H PRN #14 tab 12/30/19 azithromycin 500 mg PO DAILY 3 Days tab 05/17/20 Allergies Allergy/AdvReac Type Severity Reaction Status Date / Time No Known Drug Allergies Allergy Verified 12/30/19 08:18 Review of Systems Constitutional Constitutional: Denies chills, Denies fatigue, Denies fever(s), Denies frequent falls, Denies lethargy and Denies weakness Eyes Eyes: Denies change in vision, Denies eye discharge, Denies irritation and Denies loss of vision ENT Ears, Nose, Mouth, and Throat: Denies change in voice, Denies dizziness, Denies neck pain, Denies sore throat and Denies throat swelling Cardiovascular Cardiovascular: Denies chest pain, Denies irregular heart rhythm, Denies lightheadedness, Denies palpitations, Denies dyspnea, Denies dyspnea on exertion and Denies orthopnea Respiratory Respiratory: Denies cough, Denies dyspnea, Denies dyspnea on exertion and Denies wheezing Gastrointestinal Gastrointestinal: Reports abdominal pain, Reports hematochezia, Denies change in bowel habits, Reports change in stool character, Reports diarrhea, Reports nausea and Denies vomiting Musculoskeletal Musculoskeletal: Denies neck pain and Denies numbness Integumentary/Breasts Skin/Breast: Denies pruritus, Denies erythema, Denies rash and Denies wounds Neurologic Neurologic: Denies behavioral changes, Denies confusion, Denies dizziness, Denies frequent falls, Denies loss of vision, Denies numbness and Denies weakness Psychiatric Psychiatric: Denies anxiety, Denies behavioral changes, Denies confusion, Denies depression, Denies homicidal ideation and Denies suicidal ideation Endocrine Endocrine: Denies fatigue, Denies flushing and Denies palpitations Hematologic/Lymphatic Hematologic/Lymphatic: Denies easy bruising Allergic/Immunologic Allergic/Immunologic: Denies urticaria, Denies throat swelling and Denies wheezing Patient History Medical History Patient denies significant medical history (Acute) Surgical History History of cholecystectomy (Acute) History of tubal ligation (Acute) Social History Smoking Status: Never smoker Smoking Status: Never smoker alcohol intake frequency: holidays/special occasions only Alcohol type: wine Substance Use Type: does not use Exam Narrative Exam Narrative: GENERAL: [24] year old patient appears stated age. Well- nourished, well-developed patient, in mild distress. HEAD: Atraumatic. Normocephalic. EYES: Pupils equal round and reactive. Extraocular motions intact. No scleral ic terus. No injection or drainage. ENT: Nose without bleeding, purulent drainage. Throat without erythema, tonsillar hypertrophy or exudate. Airway patent. NECK: Trachea midline. Non tender CARDIOVASCULAR: Regular rate and rhythm without murmurs, gallops, or rubs. RESPIRATORY: Clear to auscultation. Breath sounds equal bilaterally. No wheezes, rales, or rhonchi. GASTROINTESTINAL: Abdomen soft, generalized tenderness with increased bowel sounds nondistended. EXTREMITIES: No edema or joint tenderness. BACK: Nontender without deformity or crepitance. No flank tenderness. NEURO: AOx3. SKIN: No rash or erythema of visible areas Initial Vital Signs Initial Vital Signs: Vital Signs Temperature 97.4 F L 05/17/20 21:02 Pulse Rate 80 05/17/20 21:02 Respiratory Rate 18 05/17/20 21:02 Blood Pressure 116/77 05/17/20 21:02 Pulse Oximetry 99 05/17/20 21:02 Course Orders Ordered: ED Orders 05/17/20 21:15 Complete Blood Count AUTO DIFF Stat Comprehensive Metabolic Panel Stat Lipase Stat Partial Thromboplastin Time Stat Prothrombin Time INR Stat 05/17/20 21:45 GI Panel (Film Array) Stat 05/17/20 23:23 Urine Microscopic Stat Discontinued Medications Azithromycin (Zithromax) 500 mg PO NOW ONE Stop: 05/17/20 23:40 Last Admin: 05/17/20 23:43 Dose: 500 mg Documented by: ECHO Sodium Chloride (Normal Saline 0.9%) 1,000 mls @ 1,000 mls/hr IV BOLUS ONE Stop: 05/17/20 22:41 Last Infusion: 05/17/20 23:37 Dose: 0 mls/hr Documented by: Admin: 05/17/20 21:51 Dose: 1,000 mls/hr Documented by: RUCHI Sodium Chloride (Normal Saline 0.9%) 1,000 mls @ 1,000 mls/hr IV BOLUS ONE Stop: 05/18/20 00:08 Last Infusion: 05/18/20 00:20 Dose: 0 mls/hr Documented by: Admin: 05/17/20 23:30 Dose: 1,000 mls/hr Documented by: RUCHI Vital Signs Vital signs: Vital Signs - 8 hr 05/17/20 23:56 Pulse Rate 78 Respiratory Rate 15 Blood Pressure 108/72 Pulse Oximetry 98 MDM - GI Bleed Lab Data Result diagrams: 05/17/20 21:15 05/17/20 21:15 Labs: Lab Results 05/17/20 05/17/20 05/17/20 Range/Units 21:15 21:15 21:15 WBC 8.6 (4.5-11.0) X10^3/uL RBC 4.43 (4.0-5.2) X10^6/uL Hgb 13.2 (12.0-16.0) g/dL Hct 38.1 (36-46) % MCV 86.1 (80-100) fL MCH 29.9 (26-34) PG MCHC 34.7 (30-36) % RDW 12.8 (11.6-14.8) % Plt Count 204 (150-400) X10^3/uL Neut % (Auto) 47.9 L (50-75) % Lymph % (Auto) 35.8 (25-40) % [place] % (Auto) 12.7 (3-14) % Eos % (Auto) 3.1 (2-4) % Baso % (Auto) 0.5 (0-2) % Neut # (Auto) 4100 (3351-9052) /uL Lymph # (Auto) 3100 (7441-8481) /uL [place] # (Auto) 1100 H (0-900) /uL Eos # (Auto) 300 (0-450) /uL Baso # (Auto) 0 (0-100) /uL PT 13.2 H (10.1-12.7) SECONDS INR 1.1 (0.9-1.3) APTT 31 (26.4-36.2) SECONDS Sodium 139 (137-145) mmol/L Potassium 3.5 (3.4-5.1) mmol/L Chloride 105 (98-107) mmol/L Carbon Dioxide 24 (22-32) mmol/L BUN 11 (7-17) mg/dL Creatinine 0.73 (0.52-1.04) mg/dL Estimated GFR > 60.0 (>60) mL/min BUN/Creatinine Ratio 15.1 (6-22) Glucose 102 H (70-100) mg/dL Calcium 9.5 (8.4-10.2) mg/dL Total Bilirubin 0.6 (0.2-1.3) mg/dL AST 31 (14-36) IU/L ALT 33 (<35) IU/L Alkaline Phosphatase 94 (38-126) U/L Total Protein 7.5 (6.3-8.2) g/dL Albumin 4.2 (3.5-5.0) g/dL Globulin 3.3 (1.7-4.1) g/dL Albumin/Globulin Ratio 1.3 (1.0-2.8) Lipase 59 (23-300) U/L Urine RBC (0-5/HPF) Urine WBC (0-5/HPF) Ur Squamous Epith Cells (0-5/HPF) Calcium Oxalate Crystal Urine Bacteria (None) Hyaline Casts (None) Urine Mucus (Negative) Ur Culture Indicated? Stl C. cayetanensis PCR (Not Detect) Stool Rotavirus (PCR) (Not Detect) Stool Adenovirus (PCR) (Not Detect) Stool Astrovirus (PCR) (Not Detect) Stool Cryptosporidium PCR (Not Detect) Stl E.coli Shiga Tox PCR (Not Detect) St Sh/Enteroin Ecoli PCR (Not Detect) Stool E coli O157 PCR Stl Enterotoxigenic E PCR (Not Detect) Stool EPEC (PCR) (Not Detect) Stl E. histolytica PCR (Not Detect) Stool Giardia Lamblia PCR (Not Detect) Stool Sapovirus (PCR) (Not Detect) Stl P. shigelloides PCR (Not Detect) St Y.enterocolitica PCR (Not Detect) Stool Vibrio (PCR) (Not Detect) Stl Vibrio cholerae PCR (Not Detect) Stl Enteroaggr Ecoli PCR (Not Detect) Stl Norovirus GI/GII PCR (Not Detect) Campylobacter (PCR) (Not Detect) C. difficile Tox (PCR) (Not Detect) Salmonella (PCR) (Not Detect) 05/17/20 05/17/20 Range/Units 21:45 23:23 WBC (4.5-11.0) X10^3/uL RBC (4.0-5.2) X10^6/uL Hgb (12.0-16.0) g/dL Hct (36-46) % MCV (80-100) fL MCH (26-34) PG MCHC (30-36) % RDW (11.6-14.8) % Plt Count (150-400) X10^3/uL Neut % (Auto) (50-75) % Lymph % (Auto) (25-40) % [place] % (Auto) (3-14) % Eos % (Auto) (2-4) % Baso % (Auto) (0-2) % Neut # (Auto) (1449-3127) /uL Lymph # (Auto) (4094-4623) /uL [place] # (Auto) (0-900) /uL Eos # (Auto) (0-450) /uL Baso # (Auto) (0-100) /uL PT (10.1-12.7) SECONDS INR (0.9-1.3) APTT (26.4-36.2) SECONDS Sodium (137-145) mmol/L Potassium (3.4-5.1) mmol/L Chloride (98-107) mmol/L Carbon Dioxide (22-32) mmol/L BUN (7-17) mg/dL Creatinine (0.52-1.04) mg/dL Estimated GFR (>60) mL/min BUN/Creatinine Ratio (6-22) Glucose (70-100) mg/dL Calcium (8.4-10.2) mg/dL Total Bilirubin (0.2-1.3) mg/dL AST (14-36) IU/L ALT (<35) IU/L Alkaline Phosphatase (38-126) U/L Total Protein (6.3-8.2) g/dL Albumin (3.5-5.0) g/dL Globulin (1.7-4.1) g/dL Albumin/Globulin Ratio (1.0-2.8) Lipase (23-300) U/L Urine RBC 0-1/hpf (0-5/HPF) Urine WBC None seen (0-5/HPF) Ur Squamous Epith Cells 1-5 /hpf (0-5/HPF) Calcium Oxalate Crystal Moderate H Urine Bacteria Moderate (10-30) H (None) Hyaline Casts 0-1/lpf (None) Urine Mucus 1+ H (Negative) Ur Culture Indicated? Cult not indicated Stl C. cayetanensis PCR Not detected (Not Detect) Stool Rotavirus (PCR) Not detected (Not Detect) Stool Adenovirus (PCR) Not detected (Not Detect) Stool Astrovirus (PCR) Not detected (Not Detect) Stool Cryptosporidium PCR Not detected (Not Detect) Stl E.coli Shiga Tox PCR Not detected (Not Detect) St Sh/Enteroin Ecoli PCR Not detected (Not Detect) Stool E coli O157 PCR Not Reportable Stl Enterotoxigenic E PCR Not detected (Not Detect) Stool EPEC (PCR) Not detected (Not Detect) Stl E. histolytica PCR Not detected (Not Detect) Stool Giardia Lamblia PCR Not detected (Not Detect) Stool Sapovirus (PCR) Not detected (Not Detect) Stl P. shigelloides PCR Not detected (Not Detect) St Y.enterocolitica PCR Not detected (Not Detect) Stool Vibrio (PCR) Not detected (Not Detect) Stl Vibrio cholerae PCR Not detected (Not Detect) Stl Enteroaggr Ecoli PCR Not detected (Not Detect) Stl Norovirus GI/GII PCR Not detected (Not Detect) Campylobacter (PCR) Detected H (Not Detect) C. difficile Tox (PCR) Not detected (Not Detect) Salmonella (PCR) Not detected (Not Detect) Urine Dip Bedside Urine Glucose Negative Bedside Urine Bilirubin - Negative Bedside Urine Ketone +/- 5 Urine Specific Hyndman 1.025 Bedside Urine Occult Blood +/- Bedside Urine pH 6.0 Bedside Urine Protein +/- 15 Bedside Urine Urobilinogen - Negative Bedside Urine Nitrite - Negative Bedside Urine Leukocytes +/- 15 Esterase Discharge Plan Departure Patient Disposition: Home Clinical Impression: Infectious diarrhea, Campylobacter enteritis Discharge Date/Time: 05/18/20 00:19 Instructions: Diarrhea Activity Restrictions/Additional Instructions: 1. Drink plenty of fluids with frequent small sips. 2. For the next 24 hours a clear liquid diet is advised. After that please employ a brat diet which would include bananas, rice, apples, toast. 3. Please take medications as directed. 4. Please follow-up with your doctor in the next 1-2 days. Call the office for an appointment. 5. Please return to the emergency Department for any worsening or persistent symptoms, such as increasing pain or fever. Prescriptions: New azithromycin 500 mg tablet 500 mg PO DAILY 3 Days RF: 0 No Action ibuprofen [IBU] 800 mg tablet 800 mg PO PRN PRN (Reason: Pain (Scale Score 4-6)) RF: 0 ondansetron 4 mg tablet,disintegrating 4 mg PO Q6H PRN (Reason: nausea and vomiting) Qty: 14 RF: 0 ondansetron 4 mg tablet,disintegrating 4 mg PO Q6H PRN (Reason: nausea and vomiting) Qty: 14 RF: 0 Referrals: Nasrin Sharp [Primary Care Provider] -
[2020-05-17] MEDS: SODIUM CHLORIDE 0.9% 1,000 ML 1000 ML IV ×2 (21:51→23:30)
[2020-05-17 23:23] LABS: Clostridium difficile toxin AB Not Detected (Not Detect); Enteroaggregative E.coli Not Detected (Not Detect); Enteropathogenic E.coli Not Detected (Not Detect); Enterotoxigenic E.coli It/st Not Detected (Not Detect); Plesiomonsa shigelloides Not Detected (Not Detect); Salmonella Not Detected (Not Detect); Shiga-like toxin-prod E.coli Not Detected (Not Detect); Vibrio Not Detected (Not Detect); Vibrio cholerae Not Detected (Not Detect); Yersinia enterocolitica Not Detected (Not Detect)
[2020-05-17 23:24] LABS: Adenovirus F 40/41 Not Detected (Not Detect); Astrovirus Not Detected (Not Detect); Cryptosporidium Not Detected (Not Detect); Cyclospora cayetanensis Not Detected (Not Detect); Entamoeba histolytica Not Detected (Not Detect); Giardia lamblia Not Detected (Not Detect); Norovirus GI/GII Not Detected (Not Detect); Rotavirus A Not Detected (Not Detect); Sapovirus Not Detected (Not Detect); Shigella/Enteroinvasive E.coli Not Detected (Not Detect)
[2020-05-17] MEDS: AZITHROMYCIN 250 MG TABLET 500 MG PO (23:43)
[2020-05-17 23:56] VITALS: BP 108/72; PULSE 78; RESP 15; O2SAT 98
[2020-05-18] LABS: WBC Urine None Seen (0-5/HPF)
[2020-05-18 00:08] LABS: Bacteria Urine Moderate (10-30); Calcium Oxalate Crystals Urine Moderate; Hyaline Casts Urine 0-1/LPF; Mucus Urine 1+ (Negative); RBC Urine 0-1/HPF (0-5/HPF); Squamous Epithelial Cell Urine 1-5 /HPF (0-5/HPF)
[2020-05-18 00:13] LABS: Culture Indicated Urine Cult Not Indicated
[2020-05-18 14:33] LABS: Campylobacter Detected (Not Detect)
== END 2020-05-18 00:19 | disposition home or self-care (01) ==
PROVIDERS: Emergency Provider Emergency Medicine; PCP Family Medicine
DX: A04.5 Campylobacter enteritis (principal); R50.9 Fever, unspecified; R11.0 Nausea
CPT/HCPCS: 36415; 80053; 81003; 81015; 83690; 85025; 85610; 85730; 87507; 96360; 96361; 99284

== ENCOUNTER 2020-06-29 08:19 | Emergency (ER) | payer OTHER, SELFPAY ==
[2020-06-29 08:20] VITALS: BP 119/64; PULSE 120; RESP 20; TEMP 36.6; O2SAT 98; BMI 35.4
[2020-06-29 09:17] LABS: Add Manual Diff / Slide Review NO; Basophils Absolute Auto 0 /uL (0-100); Basophils Percent Auto 0.5 % (0-2); Eosinophils Absolute Auto 200 /uL (0-450); Eosinophils Percent Auto 1.9 % (2-4); Hematocrit 42.3 % (36-46); Hemoglobin 14.6 g/dL (12.0-16.0); Lymphocytes Absolute Auto 3000 /uL (1100-4500); Lymphocytes Percent Auto 35.6 % (25-40); Mean Corpuscular HGB Conc 34.4 % (30-36); Mean Corpuscular Hemoglobin 30.5 PG (26-34); Mean Corpuscular Volume 88.5 fL (80-100); Monocytes Absolute Auto 600 /uL (0-900); Monocytes Percent Auto 6.8 % (3-14); Neutrophils Absolute Auto 4700 /uL (1500-7000); Neutrophils Percent Auto 55.2 % (50-75); Platelet Count 249 X10^3/uL (150-400); Red Blood Cell Count 4.78 X10^6/uL (4.0-5.2); Red Cell Distribution Width 12.9 % (11.6-14.8); White Blood Cell Count 8.6 X10^3/uL (4.5-11.0)
[2020-06-29 09:24] LABS: UR Morphine/Opiate cutoff 300 Negative (Negative); Ur Creatinine Normal (Normal); Ur Specific Gravity Normal (Normal); Urine Amphetamines Negative (Negative); Urine Barbiturates Negative (Negative); Urine Benzodiazepines Negative (Negative); Urine Cocaine Negative (Negative); Urine MDMA Negative (Negative); Urine Methadone Negative (Negative); Urine Methamphetamines Negative (Negative); Urine Oxycodone Negative (Negative); Urine Phencyclidine Negative (Negative); Urine Tetrahydrocannabinol Negative (Negative); Urine Tricyclic Antidepressant Negative (Negative); Urine pH Normal (Normal)
--- NOTE | 2020-06-29 09:29 | ED.PSYCH ---
HPI - Psych General Chief Complaint: Psychiatric Symptoms Stated Complaint: 'not feeling well' Time Seen by Provider: 06/29/20 08:51 Source: patient and family Mode of arrival: Ambulatory History of Present Illness HPI Narrative: 24-year-old woman otherwise healthy presents with suicidal ideation and depression. Her current symptoms include anhedonia, fatigue, easy irritability and anxiety. She finds that she is frustrated with her 2 small children and then gets frustrated with herself for those feelings. She is in her is supportive. She has never cut or done any type of self-harm. She has never tried to kill herself. She states over the last 1-2 weeks she has had thoughts of both self cutting and taking pills to kill herself. She is asking for help and feels that outpatient follow-up would likely be very appropriate. She does not feel she needs to be hospitalized this time. She states that she did try Prozac briefly as prescribed prior her OBGYN but thought that it made things a bit worse. She did feel better for a number of months but finds that she is worsening again. (her youngest child is now 1-year-old). No recent headaches, fevers, chills, abdominal pain. She notes she has been gaining weight recently. Excessive sleepiness and she feels that when she does sleep even though she feels she sleeps soundly she does not feel rested when she wakes. Related Data Home Medications Medication Instructions Recorded Confirmed ibuprofen [IBU] 800 mg PO PRN PRN 05/09/19 05/09/19 Previous Rx's Medication Instructions Recorded ondansetron 4 mg PO Q6H PRN #14 tab 07/03/19 ondansetron 4 mg PO Q6H PRN #14 tab 12/30/19 sertraline 50 mg PO DAILY #30 tab 06/29/20 Allergies Allergy/AdvReac Type Severity Reaction Status Date / Time No Known Drug Allergies Allergy Verified 12/30/19 08:18 Review of Systems Review of Systems Narrative: Pertinent positive and negative findings as per HPI Remainder of review of systems is otherwise unremarkable for Constitutional: Fevers, chills, weakness ENT: No sore throat, neck pain, ear pain CV: Chest pain, palpitations, dyspnea on exertion Respiratory: Cough, wheeze, dyspnea GI: Nausea, vomiting, diarrhea, change in bowel habits, black or bloody stools : Dysuria, hematuria, flank pain MS: Muscle weakness, numbness, joint swelling or warmth Skin: Rashes, nonhealing lesions Neuro: Syncope, dizziness, tingling Patient History Medical History (Acute) Patient denies significant medical history (Acute) Surgical History History of cholecystectomy (Acute) History of tubal ligation (Acute) Social History Smoking Status: Never smoker Smoking Status: Never smoker alcohol intake frequency: holidays/special occasions only Alcohol type: wine Substance Use Type: marijuana Exam Narrative Exam Narrative: General: Healthy appearing, tearful but able to give a complete and coherent history. Well-nourished well-developed HEENT: Moist mucous membranes, normal sclera with reactive pupils, Neck: supple Respiratory: Lungs are clear to auscultation, no wheezing no rales no rhonchi. Full and symmetrical air movement Cardiac: Regular rate and rhythm no murmurs no bruits Abdomen: Soft nontender good bowel tones, no flank pain Skin: Warm and dry, no rashes Neurologic: Grossly neurologically intact with no obvious asymmetries or abnormalities Extremities: No trauma, well perfused Psych: Cooperative, appropriate insight and affect, good eye contact, fluent thought process, no auditory or visual hallucinations Initial Vital Signs Initial Vital Signs: Vital Signs Temperature 97.8 F 06/29/20 08:20 Pulse Rate 120 H 06/29/20 08:20 Respiratory Rate 20 06/29/20 08:20 Blood Pressure 119/64 06/29/20 08:20 Pulse Oximetry 98 06/29/20 08:20 Course Orders Ordered: ED Orders 06/29/20 08:36 Consult to [facility] [place] Associate Editor Stat 06/29/20 09:00 Urine Culture Stat Urine Drug Screen, Rapid Stat Urine Microscopic Stat 06/29/20 09:05 Acetaminophen Stat Complete Blood Count AUTO DIFF Stat Comprehensive Metabolic Panel Stat Ethanol (ETOH) Stat Free T4, Direct Thyroxine Stat Salicylate Stat Thyroid Stimulating Hormone Stat Discontinued Medications Lorazepam (Ativan) 0.5 mg PO NOW ONE Stop: 06/29/20 10:06 Last Admin: 06/29/20 10:10 Dose: 0.5 mg Documented by: CHIRAG Vital Signs Vital signs: Vital Signs - 8 hr 06/29/20 08:20 Temperature 97.8 F Pulse Rate 120 H Respiratory Rate 20 Blood Pressure 119/64 Pulse Oximetry 98 MDM - Psych Medical Records Attestation: I reviewed the patient's medical records. Lab Data Attestation: I reviewed the patient's lab results. Result diagrams: 06/29/20 09:05 06/29/20 09:05 Labs: Lab Results 06/29/20 06/29/20 06/29/20 Range/Units 09:00 09:00 09:05 WBC 8.6 (4.5-11.0) X10^3/uL RBC 4.78 (4.0-5.2) X10^6/uL Hgb 14.6 (12.0-16.0) g/dL Hct 42.3 (36-46) % MCV 88.5 (80-100) fL MCH 30.5 (26-34) PG MCHC 34.4 (30-36) % RDW 12.9 (11.6-14.8) % Plt Count 249 (150-400) X10^3/uL Neut % (Auto) 55.2 (50-75) % Lymph % (Auto) 35.6 (25-40) % [place] % (Auto) 6.8 (3-14) % Eos % (Auto) 1.9 L (2-4) % Baso % (Auto) 0.5 (0-2) % Neut # (Auto) 4700 (1490-1018) /uL Lymph # (Auto) 3000 (2010-2093) /uL [place] # (Auto) 600 (0-900) /uL Eos # (Auto) 200 (0-450) /uL Baso # (Auto) 0 (0-100) /uL Sodium (137-145) mmol/L Potassium (3.4-5.1) mmol/L Chloride (98-107) mmol/L Carbon Dioxide (22-32) mmol/L BUN (7-17) mg/dL Creatinine (0.52-1.04) mg/dL Estimated GFR (>60) mL/min BUN/Creatinine Ratio (6-22) Glucose (70-100) mg/dL Calcium (8.4-10.2) mg/dL Total Bilirubin (0.2-1.3) mg/dL AST (14-36) IU/L ALT (<35) IU/L Alkaline Phosphatase (38-126) U/L Total Protein (6.3-8.2) g/dL Albumin (3.5-5.0) g/dL Globulin (1.7-4.1) g/dL Albumin/Globulin Ratio (1.0-2.8) TSH (0.47-4.68) uIU/mL Free T4 (0.78-2.19) ng/dL Urine RBC 1-5/hpf (0-5/HPF) Urine WBC 5-10/hpf H (0-5/HPF) Ur Squamous Epith Cells 1-5 /hpf (0-5/HPF) Urine Bacteria Many (>30) H (None) Urine Mucus 1+ H (Negative) Ur Culture Indicated? Specimen cultured Salicylates (<20) mg/dL U Opiates 300ng/mL cut Negative (Negative) Ur Oxycodone Screen Negative (Negative) Urine Methadone Screen Negative (Negative) Acetaminophen (10-30) ug/mL Ur Barbiturates Screen Negative (Negative) U Tricyclic Antidepress Negative (Negative) Ur Phencyclidine Scrn Negative (Negative) Ur Amphetamines Screen Negative (Negative) U Methamphetamines Scrn Negative (Negative) Ur MDMA Scrn (Ecstasy) Negative (Negative) U Benzodiazepines Scrn Negative (Negative) Urine Cocaine Screen Negative (Negative) U Marijuana (THC) Screen Negative (Negative) Ethyl Alcohol ( - 10) mg/dL 06/29/20 06/29/20 Range/Units 09:05 09:05 WBC (4.5-11.0) X10^3/uL RBC (4.0-5.2) X10^6/uL Hgb (12.0-16.0) g/dL Hct (36-46) % MCV (80-100) fL MCH (26-34) PG MCHC (30-36) % RDW (11.6-14.8) % Plt Count (150-400) X10^3/uL Neut % (Auto) (50-75) % Lymph % (Auto) (25-40) % [place] % (Auto) (3-14) % Eos % (Auto) (2-4) % Baso % (Auto) (0-2) % Neut # (Auto) (9978-6416) /uL Lymph # (Auto) (4505-9779) /uL [place] # (Auto) (0-900) /uL Eos # (Auto) (0-450) /uL Baso # (Auto) (0-100) /uL Sodium 141 (137-145) mmol/L Potassium 4.6 (3.4-5.1) mmol/L Chloride 105 (98-107) mmol/L Carbon Dioxide 26 (22-32) mmol/L BUN 12 (7-17) mg/dL Creatinine 0.71 (0.52-1.04) mg/dL Estimated GFR > 60.0 (>60) mL/min BUN/Creatinine Ratio 16.9 (6-22) Glucose 100 (70-100) mg/dL Calcium 9.4 (8.4-10.2) mg/dL Total Bilirubin 0.4 (0.2-1.3) mg/dL AST 31 (14-36) IU/L ALT 26 (<35) IU/L Alkaline Phosphatase 116 (38-126) U/L Total Protein 8.5 H (6.3-8.2) g/dL Albumin 4.7 (3.5-5.0) g/dL Globulin 3.8 (1.7-4.1) g/dL Albumin/Globulin Ratio 1.2 (1.0-2.8) TSH 1.02 (0.47-4.68) uIU/mL Free T4 0.93 (0.78-2.19) ng/dL Urine RBC (0-5/HPF) Urine WBC (0-5/HPF) Ur Squamous Epith Cells (0-5/HPF) Urine Bacteria (None) Urine Mucus (Negative) Ur Culture Indicated? Salicylates < 1.0 (<20) mg/dL U Opiates 300ng/mL cut (Negative) Ur Oxycodone Screen (Negative) Urine Methadone Screen (Negative) Acetaminophen < 10 L (10-30) ug/mL Ur Barbiturates Screen (Negative) U Tricyclic Antidepress (Negative) Ur Phencyclidine Scrn (Negative) Ur Amphetamines Screen (Negative) U Methamphetamines Scrn (Negative) Ur MDMA Scrn (Ecstasy) (Negative) U Benzodiazepines Scrn (Negative) Urine Cocaine Screen (Negative) U Marijuana (THC) Screen (Negative) Ethyl Alcohol < 10 ( - 10) mg/dL Point of Care Testing Test Results Negative Urine Dip Bedside Urine Glucose Negative Bedside Urine Bilirubin - Negative Bedside Urine Ketone - Negative Urine Specific [place] 1.030 Bedside Urine Occult Blood - Negative Bedside Urine pH 6.0 Bedside Urine Protein - Negative Bedside Urine Urobilinogen - Negative Bedside Urine Nitrite - Negative Bedside Urine Leukocytes + 70 Esterase MDM Narrative Medical decision making narrative: 1:10pm pt is seen in the ER by Dr Gentile. Suggests starting 25mg Sertraline to increase by 25mg weekly. Will see in followup in 2 weeks. Safe for home discharge. Discharge Plan Departure Patient Disposition: Home Clinical Impression: Suicidal ideation Depression Qualifiers: Depression Type: major depressive disorder Major depression recurrence: unspecified whether recurrent Active/Remission status: currently active Major depression episode severity: severe Psychotic features: without psychotic features Qualified Code(s): F32.2 - Major depressive disorder, single episode, severe without psychotic features Activity Restrictions/Additional Instructions: Thank you forcoming in today I'm glad you chose to seek help rather than hurting yourself. Dr Gentile has suggested starting sertraline 25mg today and increasing to 50mg in one week. I have given you a prescription for 50mg pills, so cut them in half the first week. The prescription has been electronically transmitted to [facility] in [place] for you to leaf size picker this afternoon you have an apt on Thursday 07/[address] Gentile, in his clinic with [facility]. If you are feeling worse, unstable or feeling like you might hurt yourself or somebody else, please feel free to return to the emergency department. I hope you feel better Prescriptions: New sertraline 50 mg tablet 50 mg PO DAILY Qty: 30 RF: 1 No Action ibuprofen [IBU] 800 mg tablet 800 mg PO PRN PRN (Reason: Pain (Scale Score 4-6)) RF: 0 ondansetron 4 mg tablet,disintegrating 4 mg PO Q6H PRN (Reason: nausea and vomiting) Qty: 14 RF: 0 ondansetron 4 mg tablet,disintegrating 4 mg PO Q6H PRN (Reason: nausea and vomiting) Qty: 14 RF: 0 Referrals: Joni Gentile MD [Physician] - Nasrin Sharp [Primary Care Provider] -
[2020-06-29 09:30] LABS: Acetaminophen < 10 ug/mL (10-30); Alanine Aminotransferase 26 IU/L (<35); Albumin 4.7 g/dL (3.5-5.0); Albumin Globulin Ratio 1.2 (1.0-2.8); Alkaline Phosphatase 116 U/L (38-126); Aspartate Aminotransferase 31 IU/L (14-36); BUN Creatinine Ratio 16.9 (6-22); Bilirubin Total 0.4 mg/dL (0.2-1.3); Blood Urea Nitrogen 12 mg/dL (7-17); Calcium 9.4 mg/dL (8.4-10.2); Carbon Dioxide 26 mmol/L (22-32); Chloride 105 mmol/L (98-107); Estimated Glomerular Filt Rate > 60.0 mL/min (>60); Ethanol (ETOH) < 10 mg/dL; Globulin 3.8 g/dL (1.7-4.1); Glucose 100 mg/dL (70-100); HEMOLYSIS < 15 (0-50); Potassium 4.6 mmol/L (3.4-5.1); Salicylate < 1.0 mg/dL (<20); Sodium 141 mmol/L (137-145); Total Protein 8.5 g/dL (6.3-8.2)
[2020-06-29 09:44] LABS: Bacteria Urine Many (>30); Culture Indicated Urine Specimen Cultured; Mucus Urine 1+ (Negative); RBC Urine 1-5/HPF (0-5/HPF); Squamous Epithelial Cell Urine 1-5 /HPF (0-5/HPF); WBC Urine 5-10/HPF (0-5/HPF)
[2020-06-29 10:05] LABS: Free T4, Direct Thyroxine 0.93 ng/dL (0.78-2.19)
[2020-06-29] MEDS: LORazepam 0.5 MG TABLET PO (10:10)
--- NOTE | 2020-06-29 10:14 | PC.NURSE ---
Addendum entered by Ruben Scott 06/29/20 10:17: Correction to time @1015 Original Note: Jonah Scott on Pt 1:1 at 0915. Pt is calm and quiet lying on gurney
[2020-06-29 10:19] LABS: Thyroid Stimulating Hormone 1.02 uIU/mL (0.47-4.68)
--- NOTE | 2020-06-29 12:46 | PC.NURSE ---
Dr. Gentile has arrived and is Rm. with Pt
--- NOTE | 2020-06-29 13:15 | PC.NURSE ---
Dr Gentile has left the Pt Rm
[2020-06-29 13:20] VITALS: BP 114/69; PULSE 82; RESP 15; O2SAT 100
--- NOTE | 2020-06-29 13:20 | PC.NURSE ---
End Pt 1:1
--- NOTE | 2020-06-29 17:22 | P.CONS_ITS ---
History of Present Illness Consult details Date Patient Seen: 06/29/20 Time Patient Seen: 12:30 Chief complaint: 'not feeling well' Reason for consult: Suicidal ideation Requesting provider: Nafisa Grayson Narrative: REASON FOR CONSULT REQUEST: Depression and suicidal ideation CHIEF COMPLAINT: ?Lately have been really depressed? HISTORY OF PRESENT ILLNESS: The patient reports that she was in fairly good health until a little over a year ago when she gave to her 2nd child. She reports having a moderate level of depression but felt that she had handled it fairly well until the last couple of months when her depressive symptoms became significantly worse. She lives with her and 2 toddlers in an [place] a local park in order to save money so he could eventually buy a home. Alt cherelle she has a vehicle and is able to get out and take her children to local singh and such she is gradually being worn down with the COVID-19 and recent forced fire smoke restrictions. In recent weeks she reports significant symptoms of depression that worsened to the point that she began to consider suicide. Today, she felt that she might be at risk for cutting on herself. She informed her was brought to the emergency department for further evaluation and treatment. The patient complains of chronic and severely sad down and depressed mood, anhedonia, poor appetite but no significant weight change, insomnia, psychomotor slowing, decreased energy along with no motivation, negative emotions such as low self-esteem hopelessness helplessness worthlessness shame and guilt, and cuca cidal ideation as noted above. The patient denies any symptoms of munir. The patient denies any symptoms of psychosis. The patient denies any severe anxiety symptoms although she does endorse some ge neralized anxiety. But she denies any symptoms of panic. The patient denies any history of trauma or PTSD. COLLATERAL FROM STAFF: None noted PAST PSYCHIATRIC HISTORY: The patient does report a past history of difficulty with depression treated by her primary care provider with fluoxetine which caused her to feel intense suicidal ideation so was discontinued. No other psychiatric treatment prior to this period SUBSTANCE USE HISTORY: The patient denies any history of substance abuse. FAMILY HISTORY: The patient states that her mother has a history of depression and may have been treated with medication. She does not know which medication. DEVELOPMENTAL AND SOCIAL HISTORY: The patient was born and raised in [place] and describes a generally unremarkable childhood. She reports being a good student in school but eventually left high school in her gigi year because of anxiety at school. She decided instead to obtain her GED. The patient's is in the [employer] and was stationed in [place] where they met and were eventually . They have been for about 4 years and they have 2 young children. PCP: [facility] SIGNIFICANT MEDICAL HISTORY: NONE Meds Home Medications and Allergies Home Medications Medication Instructions Recorded Confirmed Type ibuprofen [IBU] 800 mg PO PRN PRN 05/09/19 05/09/19 History ondansetron 4 mg PO Q6H PRN #14 tab 07/03/19 Rx ondansetron 4 mg PO Q6H PRN #14 tab 12/30/19 Rx sertraline 50 mg PO DAILY #30 tab 06/29/20 Rx Allergies Allergy/AdvReac Type Severity Reaction Status Date / Time No Known Drug Allergies Allergy Verified 12/30/19 08:18 Review of Systems Review of Systems ROS: Yes All systems reviewed with the patient and are negative except as otherw ise documented Exam Vital Signs (past 8 hours): - 06/29/20 13:20 Pulse Rate 82 Respiratory Rate 15 Blood Pressure 114/69 Pulse Oximetry 100 Oxygen Delivery Method Room Air Narrative Exam Narrative: MENTAL STATUS EXAMINATION: Appearance: Patient is well-developed and well-nourished female neatly dressed in casual clothing and adequately groomed. She is seen in an emergency department treatment room seated on a gurney. Behavior: The patient is calm and cooperative with the examination. Eye Contact: Eye contact is good. Speech: Speech is unimpaired with normal rate, rhythm, volume and barak. Motor Movement: There was no evidence of any psychomotor agitation or retardation. Gait: Not observed Mood: Stated mood is, ?kind of depressed.? Affect: Affect is moderately dysphoric and occasionally tearful, and congruent with content. Range and reactivity are normal. Thought Process: Linear, logical, and goal-directed Thought Content: There was no current suicidal ideation, intent, or plan. There was no homicidal ideation, intent, or plan. Attention: Attentive to interview Orientation: Oriented to person, place, time, and circumstance. Memory: Intact for interview, not formally tested. Judgement: Fair Insight: Fair Impulse Control: Intact Objective Labs Result Diagrams: 06/29/20 09:05 06/29/20 09:05 Labs: Laboratory Results - last 24 hr 06/29/20 06/29/20 06/29/20 09:00 09:00 09:05 WBC 8.6 RBC 4.78 Hgb 14.6 Hct 42.3 MCV 88.5 MCH 30.5 MCHC 34.4 RDW 12.9 Plt Count 249 Neut % (Auto) 55.2 Lymph % (Auto) 35.6 [place] % (Auto) 6.8 Eos % (Auto) 1.9 L Baso % (Auto) 0.5 Neut # (Auto) 4700 Lymph # (Auto) 3000 [place] # (Auto) 600 Eos # (Auto) 200 Baso # (Auto) 0 Sodium Potassium Chloride Carbon Dioxide BUN Creatinine Estimated GFR BUN/Creatinine Ratio Glucose Calcium Total Bilirubin AST ALT Alkaline Phosphatase Total Protein Albumin Globulin Albumin/Globulin Ratio TSH Free T4 Urine RBC 1-5/hpf Urine WBC 5-10/hpf H Ur Squamous Epith Cells 1-5 /hpf Urine Bacteria Many (>30) H Urine Mucus 1+ H Ur Culture Indicated? Specimen cultured Salicylates U Opiates 300ng/mL cut Negative Ur Oxycodone Screen Negative Urine Methadone Screen Negative Acetaminophen Ur Barbiturates Screen Negative U Tricyclic Antidepress Negative Ur Phencyclidine Scrn Negative Ur Amphetamines Screen Negative U Methamphetamines Scrn Negative Ur MDMA Scrn (Ecstasy) Negative U Benzodiazepines Scrn Negative Urine Cocaine Screen Negative U Marijuana (THC) Screen Negative Ethyl Alcohol 06/29/20 06/29/20 09:05 09:05 WBC RBC Hgb Hct MCV MCH MCHC RDW Plt Count Neut % (Auto) Lymph % (Auto) [place] % (Auto) Eos % (Auto) Baso % (Auto) Neut # (Auto) Lymph # (Auto) [place] # (Auto) Eos # (Auto) Baso # (Auto) Sodium 141 Potassium 4.6 Chloride 105 Carbon Dioxide 26 BUN 12 Creatinine 0.71 Estimated GFR > 60.0 BUN/Creatinine Ratio 16.9 Glucose 100 Calcium 9.4 Total Bilirubin 0.4 AST 31 ALT 26 Alkaline Phosphatase 116 Total Protein 8.5 H Albumin 4.7 Globulin 3.8 Albumin/Globulin Ratio 1.2 TSH 1.02 Free T4 0.93 Urine RBC Urine WBC Ur Squamous Epith Cells Urine Bacteria Urine Mucus Ur Culture Indicated? Salicylates < 1.0 U Opiates 300ng/mL cut Ur Oxycodone Screen Urine Methadone Screen Acetaminophen < 10 L Ur Barbiturates Screen U Tricyclic Antidepress Ur Phencyclidine Scrn Ur Amphetamines Screen U Methamphetamines Scrn Ur MDMA Scrn (Ecstasy) U Benzodiazepines Scrn Urine Cocaine Screen U Marijuana (THC) Screen Ethyl Alcohol < 10 Assessment & Plan Assessment and plan (1) Depression: Qualifiers: Active/Remission status: currently active Depression Type: major depressive disorder Major depression episode severity: severe Major depression recurrence: unspecified whether recurrent Psychotic features: without psychotic features Qualified Code(s): F32.2 - Major depressive disorder, single episode, severe without psychotic features Status: Acute (2) Suicidal ideation: Status: Acute Assessment & Plan narrative: ASSESSMENT: Lyle Sparrow is a 24-year-old young woman, mother of 2 toddlers below the age of 4, [place] and experiencing severe symptoms of depression. Prior to coming to the emergency department, she began to experien ce severe suicidal ideation with a plan of cutting on herself. She informed her who brought her to the emergency department for further evaluation and treatment. The patient states currently that she does not want to or commit suicide but wants to get treatment, and is willing to contract for safety. We had an extensive discussion regarding the risks and benefits of taking antidepre ssant medications. DIAGNOSES: Major depressive disorder, single episode, severe without psychotic features RECOMMENDATIONS: 1. Start sertraline 25 mg p.o. q.day and increase by 25 mg each week until steady state dose of 100 mg per day is reached. 2. The risks and benefits of taking antidepressant medications, including the risk in young adults of experiencing intense suicidal ideation was reviewed with the patient. She was advised to return to the emergency department or call immediately should she experience the symptoms. 3. I reviewed a safety plan with the patient should she become suicidal including options to call her , call friends, call emergency department and the Psychiatry Department. 4. Based on the presence of resolved suicidal ideation, no current suicidal intent, and multiple blood 1st suicide including family support, engagement in treatment, and safety plan in place, overall risk is felt to be low and patient may be discharged to home. Time Spent With Patient Time with patient: 25 - 35 minutes
== END 2020-06-29 13:21 | disposition home or self-care (01) ==
PROVIDERS: Emergency Provider Emergency Medicine; PCP Family Medicine
DX: R45.851 Suicidal ideations (principal); F32.2 Major depressive disorder, single episode, severe without psychotic features
CPT/HCPCS: 36415; 80053; 80305; 80320; 80329; 81003; 81015; 81025; 84439; 84443; 85025; 87086; 90792; 99284; G0480